=== PATIENT | male | born 1950 | race Caucasian/White ===

== ENCOUNTER → 2016-12-26 | Outpatient (CLI) | payer MEDICARE, OTHER | LOC: KOH-I 09:41 | DX: R10.11 Right upper quadrant pain (principal) | CPT/HCPCS: 76705 ==

== ENCOUNTER → 2021-07-22 | Outpatient (CLI) | payer MEDICARE, OTHER | LOC: KOH-I 09:32 | DX: I63.40 Cerebral infarction due to embolism of unspecified cerebral artery (principal); G31.9 Degenerative disease of nervous system, unspecified | CPT/HCPCS: 70551 ==